=== PATIENT | female | born 1980 | race Caucasian/White ===

== ENCOUNTER 2020-11-17 09:00 | Emergency (ER) | payer MEDICAID ==
[~2020-11-17] VITALS: Ht 162.6 cm; Wt 68.2 kg
--- NOTE | 2020-11-17 09:10 | NUR ---
DR ALICIA MADE AWARE OF PATIENT IN PAIN 02/07
[2020-11-17 09:30] LABS: BASOPHILS # (AUTO) 0.1 X10'3 (0-0.2); BASOPHILS % (AUTO) 0.7 % (0-1); EOSINOPHILS # (AUTO) 0.1 X10'3 (0-0.9); EOSINOPHILS % (AUTO) 1.6 % (0-6); HEMATOCRIT 39.7 % (35.0-45.0); HEMOGLOBIN 13.4 g/dl (12.0-16.0); LYMPHOCYTES # (AUTO) 2.4 X10'3 (1.1-4.8); LYMPHOCYTES % (AUTO) 30.9 % (21-51); MEAN CORPUSCULAR HEMOGLOBIN 31.8 PG (27.0-31.0); MEAN CORPUSCULAR HGB CONC 33.7 g/dL (33.0-36.5); MEAN CORPUSCULAR VOLUME 94.3 FL (78-98); MEAN PLATELET VOLUME 6.9 FL (7.4-10.4); MONOCYTES # (AUTO) 0.5 X10'3 (0-0.9); NEUTROPHILS # (AUTO) 4.6 X10'3 (1.8-7.7); NEUTROPHILS % (AUTO) 59.8 % (42-75); PLATELET COUNT 286 X10'3 (140-440); RED BLOOD COUNT 4.21 X10'6 (4.20-5.60); RED CELL DISTRIBUTION WIDTH 13.2 % (11.5-14.5); WHITE BLOOD COUNT 7.7 X10'3 (4.5-11.0)
[2020-11-17] MEDS ORDERED: normal saline 1000ML IV soln IVB ONE ×2 (09:45→11:15)
[2020-11-17] MEDS ORDERED: ondansetron/PF 4mg/2ml inj IV ONE (09:45)
[2020-11-17] MEDS: morphine 4 MG/ML inj SYRINge IV PRN ×2 (09:49→10:22)
[2020-11-17 09:58] LABS: ALANINE AMINOTRANSFERASE 26 U/L (12-78); ALBUMIN 3.7 G/DL (3.4-5.0); ALKALINE PHOSPHATASE 62 IU/L (46-116); ANION GAP 12 (8-16); BILIRUBIN,TOTAL 0.5 MG/DL (0.1-1.0); BLOOD UREA NITROGEN 15 MG/DL (7-18); BUN/CREATININE RATIO 14.4 (6.6-38.0); CALCIUM 8.9 MG/DL (8.5-10.1); CHLORIDE 107 MMOL/L (99-107); CREATININE 1.04 MG/DL (0.40-0.90); GLUCOSE 65 MG/DL (70-104); LIPASE 202 U/L (73-393); MAGNESIUM 1.8 MG/DL (1.5-2.4); POTASSIUM 3.2 MMOL/L (3.5-5.1); SODIUM 144 MMOL/L (135-145); TOTAL CARBON DIOXIDE 25.4 MMOL/L (24-32); TOTAL PROTEIN 7.3 G/DL (6.4-8.2); eGFR 59 ML/MIN
[2020-11-17 10:00] LABS: ASPARTATE AMINO TRANSFERASE 19 U/L (10-37)
[2020-11-17 10:01] LABS: ETHANOL < 0.010 GM/DL (0.0-0.010)
[2020-11-17] MEDS ORDERED: potassium Cl 20 mEq SR tablet PO ONE (10:15)
[2020-11-17 10:51] LABS: URINE HCG NEGATIVE (NEG)
[2020-11-17 10:55] LABS: CLARITY,URINE SLIGHTLY CLOUDY (Clear); COLOR,URINE YELLOW (Yellow); GLUCOSE, URINE NEGATIVE (Neg); KETONES,URINE NEGATIVE (Neg); LEUKOCYTE ESTERASE ,URINE TRACE (Neg); NITRITES, URINE NEGATIVE (Neg); OCCULT BLOOD,URINE TRACE-INTACT (Neg); PH,URINE 6.5 (4.8-8.0); PROTEIN,URINE NEGATIVE (Neg); UROBILINOGEN,URINE 0.2 E.U/dL (0.2-1.0)
[2020-11-17 11:01] LABS: UA COLLECTION TYPE CLN CATCH MIDSTREAM
[2020-11-17 11:08] LABS: MUCUS STRANDS MODERATE /LPF (Neg); SQUAMOUS EPITHELIAL CELL,UR MANY /LPF (FEW)
[2020-11-17 11:09] LABS: BACTERIA,URINE 2+ /HPF (Neg)
[2020-11-17 11:10] LABS: RBC,URINE 0-2 /HPF (0-2); URINE AMPHETAMINE SCREEN POSITIVE (Neg); URINE BARBITUATE SCREEN NEGATIVE (Neg); URINE BENZODIAZEPINES SCREEN NEGATIVE (Neg); URINE CANNABINOID SCREEN NEGATIVE (Neg); URINE COCAINE SCREEN NEGATIVE (Neg); URINE METHADONE SCREEN NEGATIVE (Neg); URINE OPIATE SCREEN NEGATIVE (Neg); URINE PHENCYCLIDINE SCREEN NEGATIVE (Neg)
[2020-11-17 11:11] LABS: TRANSITIONAL EPI CELLS,URINE FEW /HPF; WBC,URINE 0-4 /HPF (0-4)
[2020-11-17] MEDS ORDERED: iohexol 300mg/ml 100ml inj. ONE (11:22)
[2020-11-17 14:20] VITALS: BP 112/78
== END 2020-11-17 14:23 | disposition home or self-care (01) ==
LOC: ER 09:02
DX: R10.31 Right lower quadrant pain (principal); F15.90 Other stimulant use, unspecified, uncomplicated
CPT/HCPCS: 36415; 76700; 76856; 80053; 80305; 80320; 81001; 81025; 83690; 83735; 85025; 93976; 96374; 96375; 96376; 99285; J2270; J2405; J7030; Q9967; 99284

== ENCOUNTER 2025-01-09 13:48 | Emergency (ER) | payer BC, MEDICAID ==
[~2025-01-09] VITALS: Ht 165.1 cm; Wt 98.2 kg
--- NOTE | 2025-01-09 15:07 | Physician Documentation ---
History of Present Illness ~ Chief Complaint: Flu Symptoms Stated Complaint: FEVER NAUSEA Time Seen by MD: 14:42 Primary Medical Doctor: none Mode of Arrival: POV HPI Patient is a 44-year-old female that presents to the emergency department for evaluation of fevers times 2-3 days. 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 Patient reports fevers have been as high as 104 but are responding to antipyretics. Patient denies any nausea vomiting or diarrhea. Patient does report headache associated with the fevers general malaise. Patient denies any neck pain or stiffness able to easily place her chin to her chest without discomfort. She denies any other symptoms at this time. Medication Reconciliation Allergies: Coded Allergies: No Known Allergies (Unverified , 11/17/20) Past Medical History Past Medical History: No Pertinent History Past Surgical History: noncontributory Drug Use: methamphetamine Lives with: Spouse Lives In: Home Review of Systems ROS As stated above in the HPI, otherwise all systems are reviewed and negative. Physical Exam Vital Signs: Temperature: 102.2, Heart Rate: 110, Respiratory Rate: 16, BP: 114/76, Pulse Oximetry: 99, Weight: 98.200 Oxygen Flow Rate: 0 Physical Exam VITALS: Reviewed and as above. GENERAL: Alert, no apparent distress. HEENT: Normocephalic, atraumatic, PERRL, EOMI, dry mucosa, no erythema RESPIRATORY: Lungs clear, normal breath sounds, no respiratory distress. CHEST: No accessory muscle use, no retractions CV: Regular rate, rhythm, no edema, no murmur, No: JVD GI: Soft, non-tender, bowels sounds present, no rebound, guarding, or rigidity BACK: No CVA tenderness, or swelling MUSCULOSKELETAL No deformities, no edema, negative for neck pain during exam SKIN: Warm and dry, no rash NEURO: Oriented x4, No motor or sensory deficit PSYCH: Normal mood and affect, no agitation Progress Results/Orders Results/Orders Completed Orders - EMY QUINTERO Ibuprofen Tablet (Motrin Tablet) (01/09/25 15:15) Medications Received in ER Medications (Trade) Dose Ordered Sig/Juanpablo Route PRN Reason Start Time Stop Time Status Last Admin Dose Admin (Tylenol tablet) 650 mg ONCE ONCE PO 01/09/25 14:00 01/09/25 14:01 DC 01/09/25 14:29 650 MG (Motrin tablet) 800 mg ONCE ONCE PO 01/09/25 15:15 01/09/25 15:16 DC 01/09/25 16:04 800 MG Vital Signs 01/09/25 01/09/25 01/09/25 13:52 14:55 16:22 Temp 102.2 100.1 Pulse 110 105 Resp 18 16 16 B/P (MAP) 114/76 108/65 (79) Pulse Ox 99 100 O2 Flow Rate 0 0 Laboratory Tests Test 01/09/25 14:08 SARS-CoV-2 Antigen (Rapid) Negative Medical Decision Making Findings This patient presents with symptoms suspicious for likely viral upper respiratory infection. Based on history and physical doubt sinusitis. COVID test was he developed this time. Do not suspect underlying cardiopulmonary process. I considered, but think unlikely, dangerous causes of this patients symptoms to include meningitis or any other concerning bacterial or viral infections this time. Patient is nontoxic appearing and not in need of emergent medical intervention. Patient fevers or responsive to antipyretics. Patient able to keep down liquids at this time. No concern for dehydration at this time. Patient told to self isolate at home until symptoms subside for 72 hours or without a fever minimum of 24 hours without the use of antipyretics. She will follow up with primary care provider. Patient will return to the emergency department with any worsening or recurrent symptoms or any additional concerning symptoms that we discussed here today i.e. increased fevers that are not responsive to antipyretics inability to keep down fluids increase in symptoms nausea vomiting diarrhea increased headache neck stiffness or any other conc erning symptoms. Differential Dx:Considerations: Include: CVA, Dehydration, Drug toxicity, Electrolyte imbalance, Influenza, Meningitis, Mycardial infarction, Pneumonia, Pneumonitis, Pulmonary embolus, Pyelonephritis, Respiratory failure, Sepsis, UTI, Viral Syndrome, Other Departure Disposition: 01 HOME / SELF CARE / HOMELESS Impression: Primary Impression: Viral infection Additional Impressions: Fever Malaise Discharge Instructions: Viral Illness Additional Instructions: This patient presents with symptoms suspicious for likely viral upper respiratory infection. Based on history and physical doubt sinusitis. COVID test was he developed this time. Do not suspect underlying cardiopulmonary process. I considered, but think unlikely, dangerous causes of this patients symptoms to include meningitis or any other concerning bacterial or viral infections this time. Patient is nontoxic appearing and not in need of emergent medical intervention. Patient fevers or responsive to antipyretics. Patient able to keep down liquids at this time. No concern for dehydration at this time. Patient told to self isolate at home until symptoms subside for 72 hours or without a fever minimum of 24 hours without the use of antipyretics. She will follow up with primary care provider. Patient will return to the emergency department with any worsening or recurrent symptoms or any additional concerning symptoms that we discussed here today i.e. increased fevers that are not responsive to antipyretics inability to keep down fluids increase in symptoms nausea vomiting diarrhea increased headache neck stiffness or any other concerning symptoms. And ibuprofen as needed for discomfort. Please increase your fluids as tolerated. Referrals: NO PRIMARY CARE PROVIDER (PCP) Education Educated: Patient Educated regarding: diagnosis, treatment, need for follow up Signature Scribe Signature: A Attestation: Scribed for Emy Quintero by EDEN Bruno . 01/09/25 16:57 EMY QUINTERO Jan 09, 2025 15:07
[2025-01-09] MEDS: ibuprofen tablet 400 MG TABLET PO ONE (16:04)
[2025-01-09 17:02] VITALS: BP 138/84; PULSE 79; RESP 16; TEMP 99.2; O2SAT 99
== END 2025-01-09 17:00 | disposition home or self-care (01) ==
LOC: ER 13:49
DX: B34.9 Viral infection, unspecified (principal); F15.90 Other stimulant use, unspecified, uncomplicated; Z20.822 Contact with and (suspected) exposure to COVID-19
CPT/HCPCS: 36415; 87811; 99283